=== PATIENT | female | born 1990 | race Caucasian/White ===

== ENCOUNTER 2019-01-27 18:55 | Emergency (ER) | payer OTHER ==
[2019-01-27] MEDS ORDERED: CYCLOBENZAPRINE 10 MG Prepack 2 PO PRN (21:34)
[2019-01-27 21:41] VITALS: BP 134/85
--- NOTE | 2019-01-27 23:06 | ED Physician Documentation ---
PD HPI NECK PAIN - Stated complaint Stated Complaint: NECK PX - Chief complaint Chief Complaint: Trauma Hd/Nk - History obtained from History obtained from: Patient - History of Present Illness Timing - onset: Yesterday Timing - details: Gradual onset Pain level now: 10 Location: Lower, Right, Left Quality: Pain Associated symptoms: No: Fever, Weakness, Numbness, Incontinent of urine, Unable to urinate, Incontinent of stool Improves with: Rest, Position (lying down) Worsened by: Movement, Other (sitting up) Recently seen: Admitted - Additional information Additional information: had FTSVD on 01/24 (3 days ago), and epidural had been given for this (this was at [facility]). She says that she was told there was a CSF leak (she says she was told it was a "wet tap"), and she describes having spinal headache subsequent to this. She then underwent a blood patch on the , but she says she felt as though her discomfort only got worse. She presents at this time due to neck pain that is bilateral at base of neck but only mild LALA. She says the pain is worst when she sits up (not the action/movement, but the position of sitting upright), and that the pain radiates to bilateral trapezial ridges. Inadequate relief with ibuprofen and hydrocodone (although only taking 1 tablet at a time). also c/o nausea Review of Systems Constitutional: denies: Fever, Chills, Myalgias, Sweats GI: reports: Nausea. denies: Abdominal Pain, Vomiting : denies: Dysuria, Frequency, Vaginal bleeding Musculoskeletal: reports: Neck pain. denies: Back pain, Extremity pain, Joint pain Neurologic: reports: Headache (mild). denies: Generalized weakness, Focal weakness, Numbness PD PAST MEDICAL HISTORY - Past Medical History Past Medical History: No - Allergies Allergies/Adverse Reactions: Allergies Allergy/AdvReac Type Severity Reaction Status Date / Time No Known Drug Allergies Allergy Verified 01/27/19 19:03 - Living Situation Living Situation: reports: With family Living Arrangement: reports: At home - Social History Does the pt smoke?: No Smoking Status: Never smoker PD ED PE NORMAL - Vitals Vital signs reviewed: Yes - General General: Alert and oriented X 3, Well developed/nourished, Other (NAD at rest but appears to have painful discomfort with movement involving neck, even more pronounced if she is sitting up (again, as discussed in HPI, she appears to have more discomfort maintaining an upright ("sitting up") position than pain from the movements involved in going from lying supine to sitting up)) - HEENT HEENT: PERRL, EOMI, Moist mucous membranes - Neck Neck: Supple, no meningeal sign, No bony TTP - Cardiac Cardiac: RRR - Respiratory Respiratory: No respiratory distress, Clear bilaterally - Back Back: No CVA TTP, No spinal TTP, Other (C-T-L-S spine is nontender; there is no erythema, swelling, abnormal warmth/heat to touch) - Derm Derm: Normal color, Warm and dry, No rash - Extremities Extremities: No edema - Neuro Neuro: Alert and oriented X 3, retirement plan counselor 2-12 intact, No motor deficit, No sensory deficit, Normal speech Eye Opening: Spontaneous Motor: Obeys Commands Verbal: Oriented GCS Score: 15 PD ED PE EXPANDED - Cardiac Cardiac: Murmur Present (3/6 holosystolic murmur distinctly limited to left 2nd ICS). No: JVD present, Rub Results - Vitals Vitals: Oxygen O2 Source Room air PD MEDICAL DECISION MAKING - ED course Complexity details: considered differential, d/w patient, d/w family ED course: some elements of HPI are s/o ongoing spinal leak/spinal LALA (distinctly worse with sitting up and maintaining this position), although LALA is a minor feature, with the pain being predominantly at base of neck (on either side but not midline, and radiating out to bilateral trapezial ridges). Her neck is supple, she is afebrile, and normal neurologic exam. Low suspicion for infectious cause. She has a point-specific but 3/6 heart murmur which she says she has not been told she has in the past. I recommended obtaining blood tests, IV access, and performing CT angio of chest with contrast, so as to assess the aorta and its immediate branches. She considered this, active and participating in the conversation and expressing understanding of my recommendations and reasoning. She then discussed this with s.o. and eventually decided to decline any and all testing at this time, and she also declines medications I have offered for symptoms except for flexeril. She says she will f/u tomorrow (has appointment already). She looks uncomfortable at times although she looked most comfortable prior to discharge, which is reassuring. She expresses understanding that she can return at any time, particularly if worse in any way. I instructed her to discuss the heart murmur with her physician, as further testing (such as echo) might be indicated. I also offered to have anesthesiology paged to attempt another blood patch but she declines this as well. Departure - Departure Disposition: 01 Home, Self Care Clinical Impression: Neck pain, Heart murmur previously undiagnosed Condition: Good Instructions: Heart Murmur, ED Neck Pain No Trauma Discharge Date/Time: 01/27/19 21:49
== END 2019-01-27 21:49 | disposition home or self-care (01) ==
LOC: ED 18:55
DX: O99.89 Other specified diseases and conditions complicating pregnancy, childbirth and the puerperium (principal); O89.4 Spinal and epidural anesthesia-induced headache during the puerperium; M54.2 Cervicalgia; R01.1 Cardiac murmur, unspecified
CPT/HCPCS: 99281; 99284

== ENCOUNTER 2020-08-08 18:19 | Emergency (ER) | payer OTHER ==
[2020-08-08 18:43] VITALS: BP 132/82
--- OUTSIDE RECORDS SUMMARY | 2020-08-08 18:53 | EXTERNAL MEDICAL SUMMARY RPT | Continuity of Care Document ---
:1990 Demographics Phone Unavailable Preferred Language Unknown Marital Status Unknown Quaker Affiliation Unknown Race Unknown Ethnic Group Unknown Author Organization [place] Address [address] [place] [address] Phone Allergies Encounters Medications Problems Results
--- NOTE | 2020-08-08 18:56 | ED Physician Documentation ---
<Mango España - Last Filed: 08/08/20 18:56> History of Present Illness - Stated complaint Stated Complaint: CHILLS,WEAK,FEVER, NAUSEA - Chief complaint Chief Complaint: General PD PAST MEDICAL HISTORY - Present Medications Home Medications: Ambulatory Orders Medication Instructions Recorded Confirmed No Known Home Medications 08/08/20 08/08/20 - Allergies Allergies/Adverse Reactions: Allergies Allergy/AdvReac Type Severity Reaction Status Date / Time No Known Drug Allergies Allergy Verified 08/08/20 18:43 - Social History Does the pt smoke?: No Smoking Status: Never smoker <Bea Reece - Last Filed: 08/08/20 20:22> History of Present Illness - Additonal information Additional information: 30-year-old female presents emergency department for evaluation of simply not feeling well. She reports chest pain, anxiety, feeling like she is on crack and having nausea. She states that she was anxious because her family is coming into town but felt like this is not typical of her anxiety. She denies illicit drug use or cannabis use social drinker only. Non-smoker. She is hopeful that she has COVID-19 because she would not know what to do if she had a diagnosis of anxiety. No hormone use, no recent surgery or immobilization, no unilateral leg swelling, no pleuritic chest pain. Review of Systems Constitutional: reports: Myalgias. denies: Fever, Chills Eyes: reports: Reviewed and negative Ears: reports: Reviewed and negative Nose: reports: Reviewed and negative Throat: reports: Reviewed and negative Cardiac: reports: Reviewed and negative Respiratory: denies: Dyspnea, Cough GI: reports: Nausea. denies: Abdominal Pain, Vomiting : denies: Dysuria, Frequency, Hesitancy Skin: reports: Reviewed and negative Musculoskeletal: reports: Reviewed and negative Neurologic: reports: Reviewed and negative PD ED PE NORMAL - General General: Alert and oriented X 3, No acute distress - HEENT HEENT: PERRL - Neck Neck: Supple, no meningeal sign - Cardiac Cardiac: RRR, No murmur, No gallop, Strong equal pulses - Respiratory Respiratory: Clear bilaterally - Abdomen Abdomen: Normal bowel sounds, Soft, Non tender, Non distended - Back Back: No CVA TTP - Derm Derm: Normal color, Warm and dry, No rash - Extremities Extremities: No deformity - Neuro Neuro: Alert and oriented X 3, differential specialist 2-12 intact, No motor deficit, No sensory deficit Eye Opening: To Voice Motor: Obeys Commands Verbal: Oriented GCS Score: 14 - Psych Psych: Other (Anxious. Good eye contact congruent thoughts.) Results - Vitals Vitals: Vital Signs - 24 hr 08/08/20 18:34 Temperature 36.5 C Heart Rate 94 Respiratory 16 Rate Blood Pressure 132/82 H O2 Saturation 99 Oxygen O2 Source Room air - EKG (time done) 1957 Rate: Rate (enter#) (75) Rhythm: NSR [place]: Normal Intervals: Normal [place] QRS: Normal Ischemia: Normal ST segments Compare to prior EKG: Old EKG unavailable Computer interpretation: Agree with computer - Labs Labs: Laboratory Tests 08/08/20 08/08/20 08/08/20 19:12 19:12 19:12 WBC 7.0 RBC 4.54 Hgb 13.8 Hct 40.7 MCV 89.6 MCH 30.4 MCHC 33.9 RDW 11.8 L Plt Count 233 MPV 9.8 Neut # (Auto) 4.2 Lymph # (Auto) 2.2 Levy # (Auto) 0.4 Eos # (Auto) 0.1 Baso # (Auto) 0.0 Absolute Nucleated RBC 0.00 Nucleated RBC % 0.0 D-Dimer Sodium 137 Potassium 3.5 Chloride 102 Carbon Dioxide 28 Anion Gap 7.0 BUN 13 Creatinine 0.7 Estimated GFR (MDRD) 98 Glucose 96 Calcium 9.3 Total Bilirubin 0.5 AST 22 ALT 22 Alkaline Phosphatase 61 Troponin I High Sens < 2.3 L Total Protein 7.9 Albumin 5.3 Globulin 2.6 Albumin/Globulin Ratio 2.0 Lipase 34 Urine Color Urine Clarity Urine pH Ur Specific [place] Urine Protein Urine Glucose (UA) Urine Ketones Urine Occult Blood Urine Nitrite Urine Bilirubin Urine Urobilinogen Ur Leukocyte Esterase Ur Microscopic Review Urine HCG, Qual 08/08/20 08/08/20 19:12 19:45 WBC RBC Hgb Hct MCV MCH MCHC RDW Plt Count MPV Neut # (Auto) Lymph # (Auto) Levy # (Auto) Eos # (Auto) Baso # (Auto) Absolute Nucleated RBC Nucleated RBC % D-Dimer < 200.0 L Sodium Potassium Chloride Carbon Dioxide Anion Gap BUN Creatinine Estimated GFR (MDRD) Glucose Calcium Total Bilirubin AST ALT Alkaline Phosphatase Troponin I High Sens Total Protein Albumin Globulin Albumin/Globulin Ratio Lipase Urine Color YELLOW Urine Clarity CLEAR Urine pH 6.0 Ur Specific [place] 1.015 Urine Protein NEGATIVE Urine Glucose (UA) NEGATIVE Urine Ketones NEGATIVE Urine Occult Blood TRACE-INTA Urine Nitrite NEGATIVE Urine Bilirubin NEGATIVE Urine Urobilinogen 0.2 (NORMAL) Ur Leukocyte Esterase NEGATIVE Ur Microscopic Review NOT INDICATED Urine HCG, Qual NEGATIVE - Rads (name of study) CXR Radiology: Final report received (No acute cardiopulmonary process.) PD MEDICAL DECISION MAKING - ED course Complexity details: reviewed results, re-evaluated patient, d/w patient ED course: .30-year-old female presents emergency department with 2 to 3 days of generalized malaise weakness chills and feeling like she has the flu. No abdominal pain or vomiting. Screening labs are unremarkable. Urine shows signs signs of infection. Chest x-ray also unremarkable. D-dimer and troponin not elevated. low suspicion for acS. dOUBT pe; [facility]AG[facility]
[2020-08-08 19:21] LABS: BASOPHILS % (AUTO) 0.6 %; EOSINOPHILS # (AUTO) 0.1 10^3/uL (0.0-0.7); EOSINOPHILS % (AUTO) 1.7 %; HCT - HEMATOCRIT 40.7 % (37.0-47.0); HGB - HEMOGLOBIN 13.8 g/dL (12.0-16.0); LYMPHOCYTES # (AUTO) 2.2 10^3/uL (1.5-3.5); LYMPHOCYTES % (AUTO) 31.7 %; MEAN CORPUSCULAR HEMOGLOBIN 30.4 pg (27.0-31.0); MEAN CORPUSCULAR HGB CONC 33.9 g/dL (32.0-36.0); MEAN CORPUSCULAR VOLUME 89.6 fL (81.0-99.0); MEAN PLATELET VOLUME 9.8 fL (7.9-10.8); MONOCYTES # (AUTO) 0.4 10^3/uL (0.0-1.0); MONOCYTES % (AUTO) 5.8 %; NEUTROPHILS # (AUTO) 4.2 10^3/uL (1.5-6.6); NEUTROPHILS % (AUTO) 60.1 %; PLT - PLATELET COUNT 233 10^3/uL (130-450); RED BLOOD COUNT 4.54 10^6/uL (4.20-5.40); RED CELL DISTRIBUTION WIDTH 11.8 % (12.0-15.0)
[2020-08-08 19:30] LABS: ALBUMIN 5.3 g/dL (3.2-5.5); BILIRUBIN,TOTAL 0.5 mg/dL (0.2-1.0); CALCIUM 9.3 mg/dL (8.5-10.3); CREATININE 0.7 mg/dL (0.4-1.0); POTASSIUM 3.5 mmol/L (3.5-5.0); TOTAL PROTEIN 7.9 g/dL (6.7-8.2)
--- NOTE | 2020-08-08 19:36 | XRAY Report ---
PROCEDURE: Chest 1 View X-Ray INDICATIONS: anxiety TECHNIQUE: One view of the chest was acquired. COMPARISON: None FINDINGS: Surgical changes and devices: None. Lungs and pleura: No pleural effusions or pneumothorax. Lungs are clear. Mediastinum: Mediastinal contours appear normal. Heart size is normal. Bones and chest wall: No suspicious bony lesions. Overlying soft tissues appear unremarkable. IMPRESSION: No acute process. Reviewed by: Sergei Sandoval MD on 08/08/2020 7:35 PM PDT Approved by: Sergei Sandoval MD on 08/08/2020 7:35 PM PDT Station ID: [id number]
[2020-08-08 19:58] LABS: BILIRUBIN,URINE NEGATIVE (NEGATIVE); GLUCOSE, URINE (UA) NEGATIVE (NEGATIVE); KETONES,URINE (UA) NEGATIVE (NEGATIVE); LEUKOCYTE ESTERASE, URINE NEGATIVE (NEGATIVE); NITRITE,URINE NEGATIVE (NEGATIVE); OCCULT BLOOD,URINE TRACE-INTA (NEGATIVE); PROTEIN,URINE NEGATIVE (NEGATIVE); UROBILINOGEN,URINE 0.2 (NORMAL) E.U./dL (NORMAL)
[2020-08-08 19:59] LABS: CLARITY,URINE CLEAR (CLEAR); HCG UR QUAL NEGATIVE
--- NOTE | 2020-08-08 20:27 | ED Physician Documentation ---
History of Present Illness - Stated complaint Stated Complaint: CHILLS,WEAK,FEVER, NAUSEA - Chief complaint Chief Complaint: General - Additonal information Additional information: 30-year-old female presents emergency department for evaluation of generalized weakness chills fatigue and feeling as though she has the flu. She has no nausea or vomiting. She reports that she has a history anxiety but this feels different. She feels as though she is on crack she reports however she denies any drug or alcohol use. She is not a smoker. She has no pleuritic chest pain. She would like COVID-19 screening. Review of Systems Constitutional: reports: Fever, Chills. denies: Myalgias Eyes: reports: Reviewed and negative Nose: reports: Reviewed and negative Throat: reports: Reviewed and negative Cardiac: denies: Chest pain / pressure, Palpitations Respiratory: denies: Dyspnea, Cough GI: denies: Abdominal Pain, Nausea, Vomiting : reports: Reviewed and negative Skin: reports: Reviewed and negative Musculoskeletal: reports: Neck pain PD PAST MEDICAL HISTORY - Past Medical History Past Medical History: No - Past Surgical History Past Surgical History: No - Present Medications Home Medications: Ambulatory Orders Medication Instructions Recorded Confirmed No Known Home Medications 08/08/20 08/08/20 - Allergies Allergies/Adverse Reactions: Allergies Allergy/AdvReac Type Severity Reaction Status Date / Time No Known Drug Allergies Allergy Verified 08/08/20 18:43 - Social History Does the pt smoke?: No Smoking Status: Never smoker Does the pt drink ETOH?: Yes Does the pt have substance abuse?: No - Immunizations Immunizations are current?: Yes - POLST Patient has POLST: No PD ED PE NORMAL - General General: Alert and oriented X 3, No acute distress - HEENT HEENT: PERRL - Cardiac Cardiac: RRR, No murmur - Respiratory Respiratory: Clear bilaterally - Abdomen Abdomen: Normal bowel sounds, Soft, Non tender, Non distended - Back Back: No CVA TTP, No spinal TTP - Derm Derm: Normal color, Warm and dry - Extremities Extremities: No deformity - Neuro Neuro: Alert and oriented X 3 Eye Opening: Spontaneous Motor: Obeys Commands Verbal: Oriented GCS Score: 15 Results - Vitals Vitals: Vital Signs - 24 hr 08/08/20 18:34 Temperature 36.5 C Heart Rate 94 Respiratory 16 Rate Blood Pressure 132/82 H O2 Saturation 99 Oxygen O2 Source Room air - EKG (time done) 1957 Rate: Rate (enter#) (75) Rhythm: NSR [place]: Normal Intervals: Normal [place] QRS: Normal Ischemia: Normal ST segments Compare to prior EKG: Old EKG unavailable Computer interpretation: Agree with computer - Labs Labs: Laboratory Tests 08/08/20 08/08/20 08/08/20 19:12 19:12 19:12 WBC 7.0 RBC 4.54 Hgb 13.8 Hct 40.7 MCV 89.6 MCH 30.4 MCHC 33.9 RDW 11.8 L Plt Count 233 MPV 9.8 Neut # (Auto) 4.2 Lymph # (Auto) 2.2 [place] # (Auto) 0.4 Eos # (Auto) 0.1 Baso # (Auto) 0.0 Absolute Nucleated RBC 0.00 Nucleated RBC % 0.0 D-Dimer Sodium 137 Potassium 3.5 Chloride 102 Carbon Dioxide 28 Anion Gap 7.0 BUN 13 Creatinine 0.7 Estimated GFR (MDRD) 98 Glucose 96 Calcium 9.3 Total Bilirubin 0.5 AST 22 ALT 22 Alkaline Phosphatase 61 Troponin I High Sens < 2.3 L Total Protein 7.9 Albumin 5.3 Globulin 2.6 Albumin/Globulin Ratio 2.0 Lipase 34 Urine Color Urine Clarity Urine pH Ur Specific [place] Urine Protein Urine Glucose (UA) Urine Ketones Urine Occult Blood Urine Nitrite Urine Bilirubin Urine Urobilinogen Ur Leukocyte Esterase Ur Microscopic Review Urine HCG, Qual 08/08/20 08/08/20 19:12 19:45 WBC RBC Hgb Hct MCV MCH MCHC RDW Plt Count MPV Neut # (Auto) Lymph # (Auto) [place] # (Auto) Eos # (Auto) Baso # (Auto) Absolute Nucleated RBC Nucleated RBC % D-Dimer < 200.0 L Sodium Potassium Chloride Carbon Dioxide Anion Gap BUN Creatinine Estimated GFR (MDRD) Glucose Calcium Total Bilirubin AST ALT Alkaline Phosphatase Troponin I High Sens Total Protein Albumin Globulin Albumin/Globulin Ratio Lipase Urine Color YELLOW Urine Clarity CLEAR Urine pH 6.0 Ur Specific [place] 1.015 Urine Protein NEGATIVE Urine Glucose (UA) NEGATIVE Urine Ketones NEGATIVE Urine Occult Blood TRACE-INTA Urine Nitrite NEGATIVE Urine Bilirubin NEGATIVE Urine Urobilinogen 0.2 (NORMAL) Ur Leukocyte Esterase NEGATIVE Ur Microscopic Review NOT INDICATED Urine HCG, Qual NEGATIVE - Rads (name of study) cxr Radiology: Final report received (NO ACUTE PROCESS) PD MEDICAL DECISION MAKING - ED course Complexity details: reviewed results, re-evaluated patient, considered differential, d/w patient ED course: 30-year-old female presents emergency department for evaluation of 3 days generalized fatigue weakness chills and the sensation that she has high on crack. She does appear as anxious though she denies that this is an anxiety attack. She denies any illicit drug use or alcohol use. Screening EKG is nonis chemic. High-sensitivity troponin is negative. She did have a D-dimer completed which was not elevated therefore my suspicion is very low for PE. Defer imaging. By Wells criteria suspicion for PE is exceedingly low as well. Screening labs show no leukocytosis or any worrisome electrolyte abnormality. Urine does not show signs of infection. A COVID-19 test is pending on her. She reports to this provider that she feels like she has the flu and is worried that something very serious is wrong with her however I have encouraged her to go home get plenty rest and drink lots of fluids I do suspect that the generalized chills myalgias may be related to a flulike illness and that is why we are screening for Covid. Her clinical exam is unremarkable. Departure - Departure Disposition: 01 Home, Self Care Clinical Impression: Chills (without fever) Fatigue Qualifiers: Fatigue type: unspecified Qualified Code(s): R53.83 - Other fatigue Chest pain Qualifiers: Chest pain type: unspecified Qualified Code(s): R07.9 - Chest pain, unspecified Condition: Stable Record reviewed to determine appropriate education?: Yes Follow-Up: Kylah Neri TAR ROOFER [Primary Care Provider] - Comments: Maile you are seen in the emergency department today for fevers weakness chills fatigue and the feeling like you have the flu. Your screening EKG chest x-ray and labs are all essentially normal. We are screening you for COVID-19. It is likely that you do have a virus causing most of your symptoms. In general there is no treatment for this. We recommend lots of fluids and rest at home. You may take ibuprofen or Tylenol for any body aches and discomfort. Most of the symptoms typically resolve within 5 to 7 days. You may return to the emergency department if you develop chest pain, cannot breathe, have suddenly severe abdominal pain or uncontrolled vomiting. You have a Covid test pending. You need to self quarantine until the result is done and negative. Do not leave your house. Do not get near anybody. The results should be done in 48 to 72 hours. We will call with a positive result, the fastest way to get a negative result for confirmation though is to go to the hospital website at [email or web address], click on the my [facility] tab and sign up for the patient portal. If any friends or family get sick and would like to have a Covid test done, but do not have signs or symptoms that would necessitate being hospitalized, we e ncourage testing through our coronavirus swabbing station, call [phone] to schedule an appointment.
== END 2020-08-08 20:40 | disposition home or self-care (01) ==
LOC: ED 18:19
DX: R68.83 Chills (without fever) (principal); R53.83 Other fatigue; R07.9 Chest pain, unspecified; R11.0 Nausea; Z20.822 Contact with and (suspected) exposure to COVID-19
CPT/HCPCS: 36415; 80053; 81001; 81003; 81025; 83690; 84484; 85025; 85379; 93005; 99283; 99284